=== PATIENT | male | born 1965 | race Caucasian/White ===

== ENCOUNTER 2018-08-18 09:31 | Inpatient (IN) ==
[2018-08-18] MEDS ORDERED: Morphine Inj 4 MG/ML Vial IV.PUSH ONE (10:01)
--- NOTE | 2018-08-18 10:07 | ED ---
HPI General Chief complaint: Skin/Abscess/Foreign Body Stated complaint: rt arm infection/ vomiting Time Seen by Provider: 08/18/18 09:52 History of Present Illness HPI narrative: 52-year-old male with a history of Crohn's disease and diabetes presents to the emergency department for evaluation of right forearm swelling and pain. Patient states that about 1 week ago he started having pain in the right forearm. States that about 3 days ago he started having swelling to the proximal aspect of the right forearm and it also started to get slightly red. States he was seen at an urgent care yesterday and told he had cellulitis and was given an injection of antibiotics and they called him prescriptions for oral antibiotics but he did not get them filled yet. States that overnight the pain and swelling has significantly worsened and he started having vomiting. States last night he woke up with body shakes and chills. He states that the pain is severe. Aggravated with movement and palpation. Denies any alleviating factors. Denies any fever. Denies IV drug use. No other complaints or concerns. Related Data Home Medications Medication Instructions Recorded Confirmed Novolog U-100 Insulin aspart 10 unit SUB-Q TID 05/24/18 08/18/18 insulin detemir U-100 [Levemir 25 unit SUB-Q QPM 05/24/18 08/18/18 U-100 Insulin] Allergies Allergy/AdvReac Type Severity Reaction Status Date / Time infliximab Allergy Severe HIVES Verified 08/18/18 09:40 infliximab-dyyb Allergy Severe HIVES Verified 08/18/18 09:40 Review of Systems ROS: all other systems reviewed are negative [facility] Family History Family History Other Diabetes Social History Social History Substance History: No History of Abuse Second Hand Smoke Exposure: No Smoking Status: Current every day smoker Tobacco Type: Cigarettes How Often Do You Have a Drink Containing Alcohol: Monthly or less Immunization History Tetanus Immunization: Unsure Exam Narrative Exam Narrative: GENERAL: Well-nourished and well-developed male patient in no acute distress who is nontoxic appearing. SKIN: Warm and dry. HEAD: Normocephalic and atraumatic. EYES: No injection, drainage, or hyphema noted. PERRLA. EOMI. ENT: No nasal drainage noted. Oropharynx is clear. NECK: Supple and the trachea is midline. CARDIOVASCULAR: Regular rate and rhythm. RESPIRATORY: Breath sounds are equal bilaterally with no accessory muscle use, wheezing, rhonchi, or crackles. GASTROINTESTINAL: Abdomen is soft, non-tender, and nondistended. MUSCULOSKELETAL: Right volar proximal forearm with area of swelling, erythema and tenderness approximately 7 x 5 cm. No fluctuance or pointing. No obvious deformities, cyanosis, or ecchymosis is present throughout the upper and lower extremities. Patient has full range of motion without any signs of neurovascular compromise. Distal pulses are 2+ throughout. NEUROLOGICAL: Awake, alert, and oriented. Normal speech and gait. Cranial nerves are grossly intact. Course Initial Documented Vital Signs Temperature 98.0 F 08/18/18 09:35 Pulse Rate 97 H 08/18/18 09:35 Respiratory Rate 16 08/18/18 09:35 Blood Pressure 162/81 H 08/18/18 09:35 Pulse Oximetry 97 08/18/18 09:35 Last Documented Vital Signs Temperature 98.0 F 08/18/18 09:35 Pulse Rate 94 H 08/18/18 11:29 Respiratory Rate 16 08/18/18 11:29 Blood Pressure 154/79 H 08/18/18 11:29 Pulse Oximetry 99 08/18/18 11:29 Medical Decision Making JUAN Attestation JUAN supervised visit: Yes Attestation: I, Dr. Giron, have reviewed the advance practice practitioner's documentation and am in agreement, met with the patient face to face, made the diagnosis, and the medical decision making was done by me. *My assessment and Findings: Patient seen and evaluated with PA, please see PA note for further details. Here with worsening right arm infection and pain despite being on antibiotics and having seen in urgent care to get IV antibiotic shot yesterday. CAT scan is revealing signs of deeper hand space infection, and case have been discussed with hand and at this point, plan would be to transfer the patient to the main hospital for an I&D done by hand. MDM Narrative Medical decision making narrative: 52-year-old male presents to the emergency department for evaluation of right forearm swelling and pain. Patient is afebrile, vital signs are stable. IV access is obtained, labs have been drawn and sent. Patient is placed on cardiac telemetry and pulse oximetry monitoring. CT of the right forearm has been ordered and is pending to evaluate for possible abscess formation. Patient administered vancomycin 1 g IV , Zofran 4 mg IV, morphine 4 mg IV and IV fluids. CBC shows elevated white blood cell count of 13.4, otherwise unremarkable. CMP shows hyperglycemia with glucose 310 and slightly elevated alk phos, otherwise unremarkable. Lactic acid is within normal limits. CT of the right forearm with IV contrast shows complex fluid collection likely related to an abscess in the proximal anterior lateral forearm soft tissues within the flexor compartment likely related to abscess. Measuring 4.8 cm transverse, 3.2 cm in height and 5 cm in length. I spoke with Dr. Hernandez hand surgeon regarding patient's presentation and CT findings and he requests patient to be transferred to [facility] hospital as he will need to have surgical drainage of abscess. He requests admission to medicine service. I spoke with Dr. Freire [facility] who accepts patient to their service for admission. Medical Screen Exam Complete: Yes Emergency Medical Condition: Yes Differential Diagnosis Differential Diagnosis: Abscess versus cellulitis versus sepsis versus hyperglycemia Lab Data Result diagrams: 08/18/18 10:20 08/18/18 10:20 Lab Results 08/18/18 08/18/18 08/18/18 Range/Units 10:20 10:20 10:20 CBC w Diff Auto diff final WBC 13.4 H (4.0-11.0) th/mm3 RBC 5.28 (4.50-5.90) mil/mm3 Hgb 15.4 (13.0-17.0) gm/dL Hct 46.3 (39.0-51.0) % MCV 87.6 (80.0-100.0) fL MCH 29.1 (27.0-34.0) pg MCHC 33.2 (32.0-36.0) % RDW 13.8 (11.6-17.2) % Plt Count 412 (150-450) th/mm3 MPV 7.8 (7.0-11.0) fL Neut % (Auto) 84.6 H (16.0-70.0) % Lymph % (Auto) 10.0 (9.0-44.0) % [place] % (Auto) 4.2 (0.0-8.0) % Eos % (Auto) 0.9 (0.0-4.0) % Baso % (Auto) 0.3 (0.0-2.0) % Neut # (Auto) 11.4 H (1.8-7.7) th/mm3 Lymph # (Auto) 1.3 (1.0-4.8) th/mm3 [place] # (Auto) 0.6 (0.0-0.9) th/mm3 Eos # (Auto) 0.1 (0.0-0.4) th/mm3 Baso # (Auto) 0.0 (0.0-0.2) th/mm3 WBC Differential . Differential Comment . Sodium 136 (136-145) meq/L Potassium 3.9 (3.5-5.1) meq/L Chloride 99 (98-107) meq/L Carbon Dioxide 23.8 (21.0-32.0) meq/L Anion Gap 13 (5-15) meq/L BUN 12 (7-18) mg/dL Creatinine 0.76 (0.60-1.30) mg/dL Estimated GFR Greater than 89 (>89) mL/min POC Glucose (68-110) mg/dl Random Glucose 310 H (74-106) mg/dL Lactic Acid 1.3 (0.4-2.0) mmol/L Calcium 9.4 (8.5-10.1) mg/dL Total Bilirubin 0.5 (0.2-1.0) mg/dL AST 14 L (15-37) U/L ALT 28 (12-78) U/L Alkaline Phosphatase 163 H (45-117) U/L Total Protein 8.4 H (6.4-8.2) g/dL Albumin 3.4 (3.4-5.0) g/dL Lipase 73 (73-393) U/L 08/18/18 Range/Units 10:52 CBC w Diff WBC (4.0-11.0) th/mm3 RBC (4.50-5.90) mil/mm3 Hgb (13.0-17.0) gm/dL Hct (39.0-51.0) % MCV (80.0-100.0) fL MCH (27.0-34.0) pg MCHC (32.0-36.0) % RDW (11.6-17.2) % Plt Count (150-450) th/mm3 MPV (7.0-11.0) fL Neut % (Auto) (16.0-70.0) % Lymph % (Auto) (9.0-44.0) % [place] % (Auto) (0.0-8.0) % Eos % (Auto) (0.0-4.0) % Baso % (Auto) (0.0-2.0) % Neut # (Auto) (1.8-7.7) th/mm3 Lymph # (Auto) (1.0-4.8) th/mm3 [place] # (Auto) (0.0-0.9) th/mm3 Eos # (Auto) (0.0-0.4) th/mm3 Baso # (Auto) (0.0-0.2) th/mm3 WBC Differential Differential Comment Sodium (136-145) meq/L Potassium (3.5-5.1) meq/L Chloride (98-107) meq/L Carbon Dioxide (21.0-32.0) meq/L Anion Gap (5-15) meq/L BUN (7-18) mg/dL Creatinine (0.60-1.30) mg/dL Estimated GFR (>89) mL/min POC Glucose 310 H (68-110) mg/dl Random Glucose (74-106) mg/dL Lactic Acid (0.4-2.0) mmol/L Calcium (8.5-10.1) mg/dL Total Bilirubin (0.2-1.0) mg/dL AST (15-37) U/L ALT (12-78) U/L Alkaline Phosphatase (45-117) U/L Total Protein (6.4-8.2) g/dL Albumin (3.4-5.0) g/dL Lipase (73-393) U/L Imaging Data Radiologist's impression: Forearm CT 08/18/18 10:01 CONCLUSION: 1. Complex fluid collection likely related to an abscess in the proximal anterior lateral forearm soft tissues within the flexor compartment likely related to abscess. 2. The bony structures are unremarkable. Discharge Plan Discharge Disposition Patient Disposition: 30 Still Patient Discharge Details Diagnosis: Abscess of right forearm Physicians Team ED Provider: Nael Giron ED Midlevel Provider: Kerrie Cartwright Primary Care Provider: NON STAFF,PROVIDER Attending Provider: Donny Freire Other Providers: Daniel Bourgeois Status ED Status: Admitted Patient
[2018-08-18] MEDS ORDERED: Sod Chloride 0.9% Inj 1,000 ML IV.SIG SCH (10:15)
[2018-08-18] MEDS ORDERED: Vancomycin Inj 1,000 MG in Sodium Chlor 0.9% Inj 250 ML IV.SIG ONE (10:16)
[2018-08-18 10:33] LABS: Baso % (Auto) 0.3 % (0.0-2.0); Eos # (Auto) 0.1 th/mm3 (0.0-0.4); Eos % (Auto) 0.9 % (0.0-4.0); Hematocrit 46.3 % (39.0-51.0); Hemoglobin 15.4 gm/dL (13.0-17.0); Lymph # (Auto) 1.3 th/mm3 (1.0-4.8); Mean Corpuscular HGB Conc 33.2 % (32.0-36.0); Mean Corpuscular Hemoglobin 29.1 pg (27.0-34.0); Mean Corpuscular Volume 87.6 fL (80.0-100.0); Mean Platelet Volume 7.8 fL (7.0-11.0); Mono # (Auto) 0.6 th/mm3 (0.0-0.9); Mono % (Auto) 4.2 % (0.0-8.0); Neut # (Auto) 11.4 th/mm3 (1.8-7.7); Neut % (Auto) 84.6 % (16.0-70.0); Platelet Count 412 th/mm3 (150-450); Red Blood Count 5.28 mil/mm3 (4.50-5.90); Red Cell Distribution Width 13.8 % (11.6-17.2); White Blood Count 13.4 th/mm3 (4.0-11.0)
[2018-08-18 10:46] LABS: Chloride 99 meq/L (98-107); Potassium 3.9 meq/L (3.5-5.1); Sodium 136 meq/L (136-145)
[2018-08-18 10:49] LABS: Albumin 3.4 g/dL (3.4-5.0); Anion Gap 13 meq/L (5-15); Calcium 9.4 mg/dL (8.5-10.1); Carbon Dioxide 23.8 meq/L (21.0-32.0); Glucose,Random 310 mg/dL (74-106); Lipase 73 U/L (73-393)
[2018-08-18 10:50] LABS: Blood Urea Nitrogen 12 mg/dL (7-18)
[2018-08-18 10:52] LABS: Alanine Aminotransferase 28 U/L (12-78); Aspartate Aminotransferase 14 U/L (15-37); Glomerular Filtration Rate Greater Than 89 mL/min (>89)
[2018-08-18 10:54] LABS: Total Protein 8.4 g/dL (6.4-8.2)
[2018-08-18 10:55] LABS: Alkaline Phosphatase 163 U/L (45-117)
[2018-08-18] MEDS ORDERED: Vancomycin Inj 1,000 MG in Sodium Chlor 0.9% Inj 250 ML IV.SIG SCH (11:00)
[2018-08-18] MEDS ORDERED: Morphine Sulfate Inj 2 MG/ML Vial IV.PUSH ONE (11:22)
--- NOTE | 2018-08-18 11:30 | CT ---
EXAM DATE: 08/18/2018 11:22 AM EST AGE/SEX: 52 years / Male INDICATIONS: Right volar forearm swelling and pain for 1 week, with nausea and vomiting today CLINICAL DATA: This is the patient's initial encounter. Patient reports that signs and symptoms have been present for 1 week and indicates a pain score of 8/10. MEDICAL/SURGICAL HISTORY: Diabetes. Hypertension. Crohn's disease. . Rotator and back surgery RADIATION DOSE: 13.20 CTDI (mGy) COMPARISON: No prior exams available for comparison. TECHNIQUE: Multiple contiguous axial images were acquired using a multi-row detector CT scanner afte r the intravenous administration of 90 ml Omnipaque 350 (iohexol) nonionic water-soluble contrast as a single exam dose. Multiplanar reconstruction was performed in the sagittal and coronal planes. Using automated exposure control and adjustment of the mA and/or kV according to patient size, radiat ion dose was kept as low as reasonably achievable to obtain optimal diagnostic quality images. DICOM format image data is available electronically for review and comparison. FINDINGS: Bones: The bony structures about the forefoot are in normal alignment. The metatarsi, phalanges, an d distal tarsal row osseous structures are intact. No fracture is seen. Joints: No significant arthropathy or bony hypertrophy is seen. Soft Tissues: There is a complex multiloculated fluid collection seen in the deep soft tissues at th e proximal anterior lateral forearm anterior to the radius measuring approximately 4.8 cm in transver se dimension, 3.2 cm in height and extending over a 5 cm length. This appearance is most suggestive o f an abscess. It is within the flexor compartment. Other: There is a 3 mm calcific density in the superficial fat at the mid anterior medial subcutaneo us fat. Post Contrast: The rim and multiple septations are seen to advance within the complex fluid collecti on. CONCLUSION: 1. Complex fluid collection likely related to an abscess in the proximal anterior lateral forearm so ft tissues within the flexor compartment likely related to abscess. 2. The bony structures are unremarkable. Electronically signed by: Roger Regan MD 08/18/2018 11:29 AM EST
[2018-08-18] MEDS ORDERED: Vancomycin Consult Pharmacy OTHER PRN (12:31)
[2018-08-18] MEDS: Sod Chloride 0.9% Inj 1,000 ML IV.CONT SCH (12:42)
[2018-08-18] MEDS ORDERED: Piperacil/Tazo 3.375 GM Premix 50 ML IV.SIG SCH (13:00)
--- NOTE | 2018-08-18 13:24 | P.HP ---
History of Present Illness Primary Care Physician: PROVIDER NON STAFF History of Present Illness: 52-year-old white male being admitted for sepsis 2/2 right forearm infx. Patient was in his usual state of health about 1 week ago when he began experiencing right forearm pain. Says that his pain would worsen with forearm movement including supination flexion, wrist flexion wrist extension, and closing his right fist. Says he saw a redness emerge in his proximal anterior forearm about 2 days ago, went to an urgent care yesterday received some sort of IV antibiotic shot and was prescribed antibiotics. This morning he woke up in worsening excruciating pain and noted that the redness had expanded towards his wrist and also on the other and almost midway up his upper arm. He reports having subjective fevers along with nausea and vomiting. Denies any diarrhea. Denies any inoculating injury or any trauma to the arm. Patient reports having uncontrolled sugars, thinks his A1c is around 8-9, says his blood sugars range from the 150s up to the 300s. Says he is not very compliant with his insulin regimen. Denies noticing any whiteheads on his arm recently. In the emergency department he had a CT scan done which showed an abscess-like finding in the forearm flexor compartment. His white count was around 13,000. Patient was given a dose of vancomycin, and surgery has been consulted for possible debridement today. Patient does have history of severe cellulitis of the right elbow a few years ago that was successfully treated with antibiotics. Inpatient Certification: I certify that the inpatient services were ordered in accordance with Medicare regulations governing the order. This includes certification that hospital inpatient services are reasonable and necessary and in the case of services not specified as inpatient-only under 42 CFR 419.22(n), that they are appropriately provided as inpatient services in accordance to with the 2-midnight benchmark under 43 CFR 412.3(e) Estimated Total Length of Stay (Days): 2 Plans for Post Hospital Care: Not yet determined Review of Systems All other systems reviewed negative except as stated in HPI PMFSH - History History Provided By: Patient - Medical History Medical History: Medical History (Last Reviewed 08/18/18 @ 13:19 by Donny Freire MD) Hx of diabetes mellitus Hx of primary hypertension Crohn's disease - Surgical History Surgical History: Surgical History (Last Reviewed 08/18/18 @ 13:19 by Donny Freire MD) History of back surgery Hx of rotator cuff surgery - Family History Family History: Family History (Last Updated 08/18/18 @ 13:19 by Donny Freire MD) Other Diabetes - Social History I have reviewed the patient's Social History: Yes - Tobacco History Second Hand Smoke Exposure: No Tobacco Use In Past 30 Days: Yes Smoking Status: Current every day smoker Tobacco Type: Cigarettes - Alcohol History How Often Do You Have a Drink Containing Alcohol: Monthly or less - Substance Use History Substance History: No History of Abuse - Immunization History Tetanus Immunization: Unsure Medications and Allergies Active Medications: Active Medications Piperacillin/Tazobactam/Dextrose (Zosyn 3.375 Gm Premix) 50 mls @ 100 mls/hr IV.SIG Q6H MARILEE Last Admin: 08/18/18 12:57 Dose: 100 mls/hr Sodium Chloride (Ns Inj) 1,000 mls @ 42 mls/hr IV.CONT .[id number] MARILEE Last Admin: 08/18/18 12:42 Dose: 42 mls/hr Vancomycin HCl 1,250 mg/ (Sodium Chloride) 262.5 mls @ 250 mls/hr IV.SIG Q12H MARILEE Miscellaneous Information ([facility] Ordered Lab Info) 0 each OTHER ONCE ONE Stop: 08/20/18 09:46 Pharmacy Profile Note (Vancomycin Consult Pharmacy) 1 each OTHER UNSCH PRN PRN Reason: Pharmacy to dose Sodium Chloride (Ns Flush) 2 ml IV.FLUSH BID MARILEE Sodium Chloride (Ns Flush) 2 ml IV.FLUSH PRN PRN PRN Reason: FLUSH AFTER USING IV ACCESS Allergies Allergy/AdvReac Type Severity Reaction Status Date / Time infliximab Allergy Severe HIVES Verified 08/18/18 09:40 infliximab-dyyb Allergy Severe HIVES Verified 08/18/18 09:40 Home Medications Medication Instructions Recorded Confirmed Type Novolog U-100 Insulin aspart 10 unit SUB-Q TID 05/24/18 08/18/18 History insulin detemir U-100 [Levemir 25 unit SUB-Q QPM 05/24/18 08/18/18 History U-100 Insulin] Exam Vital signs: Vital Signs 08/18/18 09:35 08/18/18 10:55 08/18/18 11:29 Temperature 98.0 F Pulse Rate 97 H 85 94 H Respiratory Rate 16 18 16 Blood Pressure 162/81 H 152/75 H 154/79 H Pulse Oximetry 97 97 99 Intake & Output 08/17/18 08/18/18 08/18/18 18:59 06:59 18:59 Intake Total 1250 / 1250 Balance 1250 / 1250 Weight 74 kg Intake: IV 1250 / 1250 NS Inj 1,000 ML @ 1000 mls/hr 1000 / 1000 IV.SIG BOLUS MARILEE Rx#:[id number] Vancomycin Inj 1,000 MG In NS 250 / 250 Inj 250 ML @ 250 mls/hr IV.SIG ONCE ONE Rx#:[id number] Narrative: VS: afebrile GENERAL: Middle-aged white male, well-nourished SKIN: Warm and dry. EYES: No scleral icterus. No injection or drainage. ENT: No nasal bleeding or discharge. Mucous membranes pink and moist. CARDIOVASCULAR: Regular rate and rhythm. no murmurs RESPIRATORY: No accessory muscle use. Clear to auscultation. Breath sounds equal bilaterally. GASTROINTESTINAL: Abdomen soft, non-tender, nondistended. Hepatic and splenic margins not palpable. Extremities: No clubbing, cyanosis. Right forearm shows moderate edema with corresponding erythema on the anterior aspect, with extending erythema going up spanning across the elbow joint and reach the proximal medial arm. Patient has substantial pain elicited in the flexor compartment of his forearm with wrist and finger extension; left forearm appears wnl MUSCULOSKELETAL: Adequate muscle bulk and tone for age and habitus NEUROLOGICAL: Awake and alert. No obvious cranial nerve deficits. No facial droop nor slurred speech noted. PSYCHIATRIC: Appropriate mood and affect; insight and judgment normal. Results - Labs CBC & Chem 7: 08/18/18 10:20 08/18/18 10:20 Labs: Laboratory Results - last 24 hr 08/18/18 08/18/18 08/18/18 10:20 10:20 10:20 CBC w Diff Auto diff final WBC 13.4 H RBC 5.28 Hgb 15.4 Hct 46.3 MCV 87.6 MCH 29.1 MCHC 33.2 RDW 13.8 Plt Count 412 MPV 7.8 Neut % (Auto) 84.6 H Lymph % (Auto) 10.0 [place] % (Auto) 4.2 Eos % (Auto) 0.9 Baso % (Auto) 0.3 Neut # (Auto) 11.4 H Lymph # (Auto) 1.3 [place] # (Auto) 0.6 Eos # (Auto) 0.1 Baso # (Auto) 0.0 WBC Differential . Differential Comment . Sodium 136 Potassium 3.9 Chloride 99 Carbon Dioxide 23.8 Anion Gap 13 BUN 12 Creatinine 0.76 Estimated GFR Greater than 89 POC Glucose Random Glucose 310 H Lactic Acid 1.3 Calcium 9.4 Total Bilirubin 0.5 AST 14 L ALT 28 Alkaline Phosphatase 163 H Total Protein 8.4 H Albumin 3.4 Lipase 73 08/18/18 10:52 CBC w Diff WBC RBC Hgb Hct MCV MCH MCHC RDW Plt Count MPV Neut % (Auto) Lymph % (Auto) [place] % (Auto) Eos % (Auto) Baso % (Auto) Neut # (Auto) Lymph # (Auto) [place] # (Auto) Eos # (Auto) Baso # (Auto) WBC Differential Differential Comment Sodium Potassium Chloride Carbon Dioxide Anion Gap BUN Creatinine Estimated GFR POC Glucose 310 H Random Glucose Lactic Acid Calcium Total Bilirubin AST ALT Alkaline Phosphatase Total Protein Albumin Lipase - Imaging Impressions Forearm CT 08/18/18 10:01 CONCLUSION: 1. Complex fluid collection likely related to an abscess in the proximal anterior lateral forearm soft tissues within the flexor compartment likely related to abscess. 2. The bony structures are unremarkable. Caprini VTE Risk Assessment Caprini VTE Risk Assessment: Moderate/High Risk (score >= 2) Caprini Risk Assessment Model: Point Value = 1 Point Value = 2 Point Value = 3 Point Value = 5 Age 41-60 Minor surgery BMI > 25 kg/m2 Swollen legs Varicose veins or History of unexplained or recurrent spontaneous Oral contraceptives or hormone replacement Sepsis (< 1 month) Serious lung disease, including pneumonia (< 1 month) Abnormal pulmonary function Acute myocardial infarction Congestive heart failure (< 1 month) History of inflammatory bowel disease Medical patient at bed rest Age 61-74 Arthroscopic surgery Major open surgery (> 45 min) Laparoscopic surgery (> 45 min) Malignancy Confined to bed (> 72 hours) Immobilizing plaster cast Central venous access Age >= 75 History of VTE Family history of VTE Factor V Leiden Prothrombin [id number] Lupus anticoagulant Anticardiolipin antibodies Elevated serum homocysteine Heparin-induced thrombocytopenia Other congenital or acquired thrombophilia Stroke (< 1 month) Elective arthroplasty Hip, pelvis, or leg fracture Acute spinal cord injury (< 1 month) Prophylaxis Regimen: Total Risk Factor Score Risk Level Prophylaxis Regimen 0-1 Low Early ambulation 2 Moderate Order ONE of the following: *Sequential Compression Device (SCD) *Heparin 5000 units SQ BID 3-4 Higher Order ONE of the following medications: *Heparin 5000 units SQ TID *Enoxaparin/Lovenox 40 mg SQ daily (WT < 150 kg, CrCl > 30 mL/min) *Enoxaparin/Lovenox 30 mg SQ daily (WT < 150 kg, CrCl > 10-29 mL/min) *Enoxaparin/Lovenox 30 mg SQ BID (WT < 150 kg, CrCl > 30 mL/min) AND/OR *Sequential Compression Device (SCD) 5 or more Highest Order ONE of the following medications: *Heparin 5000 units SQ TID (Preferred with Epidurals) *Enoxaparin/Lovenox 40 mg SQ daily (WT < 150 kg, CrCl > 30 mL/min) *Enoxaparin/Lovenox 30 mg SQ daily (WT < 150 kg, CrCl > 10-29 mL/min) *Enoxaparin/Lovenox 30 mg SQ BID (WT < 150 kg, CrCl > 30 mL/min) AND *Sequential Compression Device (SCD) Assessment and Plan - Plan 52-year-old white male being admitted for right forearm abscess Sepsis 2/[address] suggesting volar aspect abscess as well as clinical exam demonstrating possible cellulitis, ? nec fascitis Hand surgery contacted, planning to take patient to OR today for debridement, continue vancomycin and Zosyn - Blood cultures pending - NPO w/ IVFs Diabetes uncontrolled Sliding scale with Accu-Cheks SCDs for now given surgery anticipated
[2018-08-18] MEDS ORDERED: Dextrose 50% in Water 50 ML Vial IV.PUSH PRN (13:25)
[2018-08-18] MEDS ORDERED: HYDROmorphone PF Inj 2 MG/ML Vial IV.PUSH ONE (13:38)
[2018-08-18] MEDS: HYDROmorphone PF Inj 1 MG/ML Ampul IV.PUSH PRN ×2 (17:24→22:17)
[2018-08-18] MEDS: Insulin NovoLOG Aspart Correctional Sugar Inj SQ SCH ×2 (17:26→20:20)
[2018-08-18] MEDS: Piperacil/Tazo 3.375 GM Premix 50 ML IV.SIG SCH (18:49)
[2018-08-18] MEDS ORDERED: *Meperidine Inj 25 MG/ML Vial PERIprocedural Use ONLY ONE (19:23)
[2018-08-18] MEDS ORDERED: fentaNYL Citrate Inj 100 MCG/2 ML Ampul ONE (19:25)
[2018-08-18] MEDS: *HYDROmorphone PF Inj 1 MG/ML Ampul PERIprocedural Use ONLY ONE (19:28)
[2018-08-18] MEDS ORDERED: *HYDROmorphone PF Inj 1 MG/ML Ampul PERIprocedural Use ONLY ONE (19:41)
--- NOTE | 2018-08-18 19:45 | MP ---
cc: Rafa MYRICK DATE OF OPERATION: 08/18/2018 DATE OF SERVICE: 08/18/2018 CHIEF COMPLAINT: Right forearm pain. HISTORY OF PRESENT ILLNESS: Mr. Maddox is a 52-year-old, left-hand dominant gentleman who presents by way of hospital transfer from [facility]. He notes that he was in his usual state of health until a week ago when he started experiencing right forearm pain. He notes that over the last 2-3 days, the pain started to worsen and he additionally saw increasing edema about the proximal forearm with erythema. He presented to the ER today. He has had no medical management to date. CT scan was obtained which demonstrates an intramuscular abscess. He had a leukocytosis. Hand surgery consultation was requested. Upon presentation at bedside, he rates a 4/10 pain. He denies pain with elbow range of motion. He denies other complaint. PAST MEDICAL HISTORY: Significant for diabetes type 2, A1c between 8 and 9, hypertension and Crohn disease. PAST MEDICAL HISTORY: Significant for rotator cuff surgery, back surgery. FAMILY HISTORY: Noncontributory. SOCIAL HISTORY: Endorses cigarette use of 1 pack per day and social alcohol use. MEDICATIONS: As per hospital chart. HOME MEDICATIONS: Include insulin only. ALLERGIES: INFLIXIMAB. REVIEW OF SYSTEMS: GENERAL: No fever or chills. ABDOMEN: No nausea, vomiting. CARDIOVASCULAR: No chest pain. LUNGS: Nonlabored breathing. No wheezing or cough. MUSCULOSKELETAL: Right forearm pain. NEUROLOGIC: No numbness or tingling. PSYCHIATRIC: No anxiety or depression. HEENT: No ear pain. No runny nose. PHYSICAL EXAMINATION: GENERAL: He is alert and oriented x3 with a normal mood and affect. MUSCULOSKELETAL: Focused evaluation of the right upper extremity demonstrates moderate edema about the proximal radial aspect of the forearm. There is associated tenderness to palpation and with fullness along the flexor compartment. There is overlying erythema with proximal tracking of the erythema up to the arm. There is no pain with passive range of motion of the elbow including supination, pronation, extension, flexion. Sensation is intact in the median, radial, ulnar nerve distribution. There is full hand range of motion. 2+ radial pulse. NEUROLOGIC: As per above. PSYCHIATRIC: Normal mood and affect. LUNGS: Unlabored breathing. CARDIOVASCULAR: Right upper extremity edema. 2+ radial pulse. Regular rate and rhythm. SKIN: Positive for edema, erythema. LABORATORY DATA: WBC of 13.4. IMAGING: CT scan of the right forearm, IV contrast demonstrates intramuscular abscess along the flexor compartment. There is no evidence of extension of the abscess intraarticularly. This measures 5 x 3 x 5 cm in length. ASSESSMENT: A 52-year-old gentleman with type 2 diabetes on insulin, with right intramuscular forearm abscess to the flexor compartment. PLAN: I had a thorough discussion with Mr. Maddox regarding our recommendations for irrigation and debridement of abscess. Relevant risks, benefits, expected postoperative course of surgical management were reviewed. Risks include but are not limited to, damage to surrounding blood vessels and nerves, continued infection, worsening infection, need for future surgery, wound healing issues, and extension of the infection intraarticularly. An ample opportunity was offered for his questions to be answered. All of his questions were answered to his apparent satisfaction. He agreed to proceed with surgery as per consent. Plan for admission to the hospitalist service. IV antibiotics for a minimum of 48-72 hours. Follow operative cultures. Of note, the patient has already been dosed with both Zosyn and vancomycin preoperatively. This will likely limit our intraoperative culture yield. DISPOSITION: Pending infectious disease consultation. Transition from IV to oral antibiotics once clinical course improves. Rafa Bourgeois MD, CM/jaclyn , 06:16 PM , 06:25 PM ZARIA
--- NOTE | 2018-08-18 20:15 | MP ---
cc: ,Rafa Bourgeois DATE OF OPERATION: 08/18/2018 DATE OF SERVICE: 08/18/2018 PREOPERATIVE DIAGNOSIS: Right intramuscular forearm abscess. POSTOPERATIVE DIAGNOSIS: Right intramuscular forearm abscess. OPERATION PERFORMED: Right forearm irrigation and debridement of deep abscess, intramuscular. SURGEON: Rafa Hernandez MD ANESTHESIA: General. ESTIMATED BLOOD LOSS: 10 mL FLUIDS: Per anesthesia record. SPECIMENS: Culture x2 sent to microbiology for aerobic, anaerobic, fungal, AFB. URINE OUTPUT: Not recorded. COMPLICATIONS: None. INDICATIONS: Please see history and physical for complete details. In summary, Mr. Maddox is a 52-year-old gentleman with type 2 diabetes, who presented to [facility] with increasing pain and swelling about the volar forearm. This occurred over the last week with increasing pain over the last 3 days. He denies any type of inoculation injury or any cut to the arm. The evaluation was significant for an intramuscular abscess on CT scan. Hand surgery consultation was requested and transfer of care was facilitated to [facility]. We discussed our recommendations at bedside regarding irrigation and debridement of the intramuscular abscess. Relevant risks, benefits, expected postoperative course of surgical management were reviewed. Risks include, but are not limited to damage to surrounding blood vessels and nerves, continued infection, wound healing issues, and need for future surgery. An ample opportunity was offered for his questions to be answered and all his questions were answered to his apparent satisfaction. He agreed to proceed with surgery as per consent. DESCRIPTION OF PROCEDURE: The patient was identified in the preoperative holding area and the operative site was marked and then brought back to the operating room under the care of the anesthesiology team. Then positioned supine on the OR table. All bony prominences were padded per protocol. Timeout was performed during which the patient's identity, site, side and nature of procedure was confirmed. General anesthesia was then induced without untoward effect and an LMA was placed. The right upper extremity was then prepped and draped in routine strict sterile fashion using triple prep solution and occlusive draping. The upper extremity was held via gravity exsanguination and the nonsterile tourniquet was inflated to 250 mmHg and remained inflated through the duration of the case. A longitudinal incision, centralized over the proximal forearm localized just distal to the elbow flexion crease, was made. Sharp dissection was carried through skin and dissection was continued through the subcutaneous tissues. Full-thickness skin flaps were elevated. The interval between the flexor and extensor volar compartment was identified. The volar forearm fascia was incised and Weitlaner retractors were placed. The radial border pronator teres was identified and blunt dissection was then utilized to identify the plane between the pronator teres and brachioradialis. Upon finding this plane, there was immediate expression of copious purulence. Cultures x2 were obtained at this point in time, attention was then turned identifying the exact localization of the abscess. The abscess did appear to have a well-defined region within the flexor pronator group, specifically within the muscle of the pronator teres and the flexor carpi radialis. The borders of the abscess were bluntly defined and the abscess was evacuated. There was no evidence of violation of the joint capsule. There is no evidence of muscle necrosis. A thorough irrigation of the abscess was then performed, once the abscess had been appropriately evacuated. Three liters normal saline solution were run through the wound with mechanical debridement being performed. A repeat evaluation of the forearm demonstrated no persistent evidence of purulence or loculation within the volar forearm. Attention was turned to placement of a EDMUNDO flat drain. This was placed within the abscess. The drain was then cut short. A bulb syringe was then placed on the drain. The wound was then closed with 4-0 Prolene in a horizontal mattress fashion loosely. A dry sterile dressing consisting of Xeroform, 4 x 4 gauze, burn fluffs and an Randall wrap were then applied. This completed the case. At the conclusion of the case, all sponge and instrument counts were correct x2. I was present for the entire duration of the case. DISPOSITION: The patient was reversed from anesthesia and transferred to PACU in stable condition. POSTOPERATIVE RECOMMENDATIONS: 1. Upper extremity elevation for edema control. 2. Follow operative cultures. Tailor antibiotic therapy accordingly. The patient was dosed IV Zosyn following obtaining operative cultures. However, the patient did previously receive IV vancomycin and Zosyn preoperatively which may alter our culture results. 3. Recommend infectious disease consultation for finalization of antibiotic therapy with eventual transition to oral regimen. 4. Plan for discharge home once the patient is clinically improved. Anticipate discharge as early as postoperative day #2, pending infectious disease and primary team recommendations. Rafa Bourgeois MD, CM/jadon , 07:23 PM , 07:33 PM
[2018-08-18] MEDS ORDERED: Insulin Detemir Inj 1,000 UNIT/10 ML Vial SQ SCH (21:00)
[2018-08-18] MEDS: Vancomycin Inj 1,250 MG in Sodium Chlor 0.9% Inj 250 ML IV.SIG SCH (22:37)
[2018-08-19] MEDS ORDERED: Ketorolac Inj 30 MG/ML (IVP) Vial IV.PUSH ONE ×2 (00:21→20:44)
[2018-08-19] MEDS: HYDROmorphone PF Inj 1 MG/ML Ampul IV.PUSH PRN ×7 (01:12→19:46)
[2018-08-19] MEDS: Piperacil/Tazo 3.375 GM Premix 50 ML IV.SIG SCH ×4 (01:12→18:01)
[2018-08-19 07:25] LABS: Baso % (Auto) 0.2 % (0.0-2.0); Eos % (Auto) 0.1 % (0.0-4.0); Hematocrit 37.7 % (39.0-51.0); Hemoglobin 12.9 gm/dL (13.0-17.0); Lymph # (Auto) 1.2 th/mm3 (1.0-4.8); Lymph % (Auto) 7.8 % (9.0-44.0); Mean Corpuscular HGB Conc 34.4 % (32.0-36.0); Mean Corpuscular Hemoglobin 30.2 pg (27.0-34.0); Mean Corpuscular Volume 87.9 fL (80.0-100.0); Mean Platelet Volume 7.5 fL (7.0-11.0); Mono # (Auto) 0.8 th/mm3 (0.0-0.9); Mono % (Auto) 4.8 % (0.0-8.0); Neut # (Auto) 13.7 th/mm3 (1.8-7.7); Neut % (Auto) 87.1 % (16.0-70.0); Platelet Count 304 th/mm3 (150-450); Red Blood Count 4.29 mil/mm3 (4.50-5.90); Red Cell Distribution Width 14.3 % (11.6-17.2); White Blood Count 15.8 th/mm3 (4.0-11.0)
[2018-08-19 07:32] LABS: Anion Gap 15 meq/L (5-15); Blood Urea Nitrogen 16 mg/dL (7-18); Calcium 8.3 mg/dL (8.5-10.1); Carbon Dioxide 20.4 meq/L (21.0-32.0); Chloride 102 meq/L (98-107); Glomerular Filtration Rate Greater Than 89 mL/min (>89); Glucose,Random 286 mg/dL (74-106); Potassium 3.6 meq/L (3.5-5.1); Sodium 137 meq/L (136-145)
[2018-08-19] MEDS: Insulin NovoLOG Aspart Correctional Sugar Inj SQ SCH ×4 (07:38→20:33)
[2018-08-19] MEDS: Vancomycin Inj 1,250 MG in Sodium Chlor 0.9% Inj 250 ML IV.SIG SCH ×2 (10:53→21:37)
--- NOTE | 2018-08-19 13:47 | ECG ---
Date Performed: 08/18/2018 Time Performed: 16:13:08 PTAGE: 52 years EKG: Sinus rhythm WITH OCCASIONAL VENTRICULAR PREMATURE COMPLEXES POSSIBLE RIGHT VENTRICULAR CONDUCTION DELAY BORDERLI NE ECG NO PREVIOUS TRACING DOCTOR: Ab Escalera Interpretating Date/Time 08/19/2018 13:44:45
--- NOTE | 2018-08-19 14:40 | P.PNIM ---
Subjective Interval history: 52 yo m admitted w severe cellulitis and abscess of R forearm s/p R forearm irrigation and debridement of deep intramuscular abscess yesterday. pt seen and examined, doing fair denies sob no cp, no nv, Physical Exam Vital signs: Last Vital Signs Temp 97.6 F 08/19/18 12:00 Pulse 83 08/19/18 12:00 Resp 18 08/19/18 12:00 BP 131/71 08/19/18 12:00 Pulse Ox 96 08/19/18 12:00 Intake & Output 08/17/18 08/18/18 08/19/18 08/20/18 06:59 06:59 06:59 06:59 Intake Total 2732.5 / 2732.5 Output Total 315 / 315 Balance 2417.5 / 2417.5 Weight 74 kg wdwn 52yo m pleasant aaox3 nad heart s1s2 reg lungs clear no wrr abd soft nondt pos bs ext RUE bandaged with drain in place, le no edema Results Labs CBC & Chem 7: 08/19/18 05:20 08/19/18 05:20 Labs: Microbiology 08/18/18 18:43 Abscess - Arm Fungal Smear - Final No fungal elements seen 08/18/18 18:43 Abscess - Arm Gram Stain - Final 08/18/18 18:43 Abscess - Arm Fungal Smear - Final No fungal elements seen 08/18/18 18:43 Abscess - Arm Gram Stain - Final 08/18/18 10:20 Blood - Peripheral Aerobic Blood Culture - Preliminary No growth in 1 day 08/18/18 10:20 Blood - Peripheral Anaerobic Blood Culture - Preliminary No growth in 1 day 08/18/18 10:30 Blood - Peripheral Aerobic Blood Culture - Preliminary No growth in 1 day 08/18/18 10:30 Blood - Peripheral Anaerobic Blood Culture - Preliminary No growth in 1 day Assessment and Plan Plan EARLY SEPSIS due to arm cellulitis - better CELLULITIS AND ABSCESS RIGHT FOREARM post urgent intraoperative R forearm irrigation, debridement of deep IM abscess, cont wound care abx, pain control , elevation and ID consult. DM IDDM - uncontrolled - diet, iss, levemir, accuchecks CROHNS dz - stable TOBACCO USE / NICOTINE ADDICTION - nicoderm, cessation counseled Progress Note: Quality VTE Deep Vein Thrombosis/Pulmonary Embolism Present on Admission: No
--- NOTE | 2018-08-19 15:28 | MB ---
cc: Donn Mchugh MD, Dorothy M DO DATE: 08/19/2018 REQUESTING PHYSICIAN: Nicci Smith DO REASON FOR CONSULTATION: Right arm abscess. HISTORY OF PRESENT ILLNESS: This is a 52-year-old white male who was admitted to the hospital with pain and redness of his right arm. The patient noted that about a week ago he developed sudden redness and swelling below the elbow inner aspect and it worsened. He presented to the emergency department yesterday. He was having swelling and pain. The patient reported that he had chills before coming to the emergency department. He was evaluated and he underwent incision and debridement and a EDMUNDO drain was left into the wound bed. A culture of the wound was sent. The result is pending. Blood culture has no growth in 1 day. The patient is afebrile. This consultation is requested for antibiotic management. The white blood cell count is elevated at 15.8. PAST MEDICAL HISTORY: Crohn disease, diabetes mellitus, hypertension, history of back surgery. ALLERGIES: INFLIXIMAB, INFLIXIMAB/DYYB. MEDICATIONS: 1. Piperacillin/tazobactam. 2. Vancomycin. 3. Insulin. SOCIAL HISTORY: The patient smokes a pack of cigarettes a day. No alcohol. No illicit drugs. FAMILY HISTORY: Noncontributory. REVIEW OF SYSTEMS: All systems have been reviewed and pertinents are mentioned in the history of present illness. PHYSICAL EXAMINATION: GENERAL: This is a well-developed male who is in no acute distress. He is awake and alert and oriented. VITAL SIGNS: Stable. Temperature is 97.6. HEENT: The head is atraumatic. Extraocular movements are grossly intact. Pupils are reactive to light. No icterus. Oropharynx with moist mucosa without lesions. NECK: Supple without adenopathy. LUNGS: Clear. HEART: Regular S1 and S2 without murmurs, rubs or gallops. ABDOMEN: Benign. Soft, nontender. RECTAL: Not performed. EXTREMITIES: No clubbing or cyanosis. The right arm is wrapped in a surgical dressing. There is a EDMUNDO drain which has serosanguineous drainage. SKIN: No diffuse rash. NEUROLOGIC: No gross focal finding. PSYCHIATRIC: The patient is calm and cooperative. LABORATORY DATA: WBC 15.8, platelets 304, neutrophils 87%. Creatinine 0.78. Estimated GFR 89. IMPRESSION: 1. Abscess of the right arm. 2. Diabetes mellitus. RECOMMENDATIONS: 1. Continue vancomycin. 2. Continue piperacillin/tazobactam. 3. Monitor the wound culture for antibiotic adjustment. 4. Monitor clinical status. 5. Monitor blood cultures. Thank you for this consultation. Further recommendations will be given upon followup. MD ALAN Morton/mariah , 12:34 PM , 12:43 PM
--- NOTE | 2018-08-19 20:12 | P.PN ---
Subjective Interval history: NOT SEEN Physical Exam Vital signs: Vital Signs 08/19/18 00:00 08/19/18 08:00 08/19/18 12:00 Temperature 97.8 F 97.7 F 97.6 F Pulse Rate 97 H 84 83 Respiratory Rate 17 18 18 Blood Pressure 130/63 150/86 H 131/71 Pulse Oximetry 97 95 96 08/19/18 16:00 Temperature 98.7 F Pulse Rate 86 Respiratory Rate 18 Blood Pressure 152/71 H Pulse Oximetry 94 L Intake & Output 08/19/18 08/19/18 08/20/18 06:59 18:59 06:59 Intake Total 1382.5 / 1382.5 1702.5 / 1702.5 50 / 50 Output Total 315 / 315 1335 / 1335 Balance 1067.5 / 1067.5 367.5 / 367.5 50 / 50 Weight 74 kg Intake: IV 412.5 / 412.5 502.5 / 502.5 50 / 50 NS Inj 1,000 ML @ 42 mls/hr IV. 190 / 190 CONT .[id number] [facility] Rx#: [id number] Zosyn 3.375 GM Premix 50 ML @ 150 / 150 50 / 50 50 / 50 100 mls/hr IV.SIG Q6H [facility]E Rx#: [id number] Vancomycin Inj 1,250 MG In NS 262.5 / 262.5 262.5 / 262.5 Inj 250 ML @ 250 mls/hr IV.SIG Q12H [facility]E Rx#:[id number] Oral 270 / 270 1200 / 1200 Anesthesia Amount 700 / 700 Output: Urine 300 / 300 1325 / 1325 Estimated Blood Loss Wound Drainage # 1 Right Anterior ForeArm EDMUNDO Drain Narrative: wdwn 52yo m pleasant aaox3 nad heart s1s2 reg lungs clear no wrr abd soft nondt pos bs ext RUE bandaged with drain in place, le no edema Results - Labs CBC & Chem 7: 08/19/18 05:20 08/19/18 05:20 Laboratory Results - last 24 hr 08/18/18 08/19/18 08/19/18 20:13 05:20 05:20 WBC 15.8 H RBC 4.29 L Hgb 12.9 L D Hct 37.7 L MCV 87.9 MCH 30.2 MCHC 34.4 RDW 14.3 Plt Count 304 MPV 7.5 Neut % (Auto) 87.1 H Lymph % (Auto) 7.8 L Yell % (Auto) 4.8 Eos % (Auto) 0.1 Baso % (Auto) 0.2 Neut # (Auto) 13.7 H Lymph # (Auto) 1.2 Yell # (Auto) 0.8 Eos # (Auto) 0.0 Baso # (Auto) 0.0 WBC Differential . Differential Comment Auto diff final Sodium 137 Potassium 3.6 Chloride 102 Carbon Dioxide 20.4 L Anion Gap 15 BUN 16 Creatinine 0.78 Estimated GFR Greater than 89 POC Glucose 235 H Random Glucose 286 H Calcium 8.3 L D 08/19/18 08/19/18 08/19/18 07:22 12:27 17:34 WBC RBC Hgb Hct MCV MCH MCHC RDW Plt Count MPV Neut % (Auto) Lymph % (Auto) Yell % (Auto) Eos % (Auto) Baso % (Auto) Neut # (Auto) Lymph # (Auto) Yell # (Auto) Eos # (Auto) Baso # (Auto) WBC Differential Differential Comment Sodium Potassium Chloride Carbon Dioxide Anion Gap BUN Creatinine Estimated GFR POC Glucose 288 H 248 H 220 H Random Glucose Calcium 08/19/18 19:48 WBC RBC Hgb Hct MCV MCH MCHC RDW Plt Count MPV Neut % (Auto) Lymph % (Auto) Yell % (Auto) Eos % (Auto) Baso % (Auto) Neut # (Auto) Lymph # (Auto) Yell # (Auto) Eos # (Auto) Baso # (Auto) WBC Differential Differential Comment Sodium Potassium Chloride Carbon Dioxide Anion Gap BUN Creatinine Estimated GFR POC Glucose 233 H Random Glucose Calcium Microbiology 08/18/18 18:43 Abscess - Arm Fungal Smear - Final No fungal elements seen 08/18/18 18:43 Abscess - Arm Gram Stain - Final 08/18/18 18:43 Abscess - Arm Fungal Smear - Final No fungal elements seen 08/18/18 18:43 Abscess - Arm Gram Stain - Final 08/18/18 10:20 Blood - Peripheral Aerobic Blood Culture - Preliminary No growth in 1 day 08/18/18 10:20 Blood - Peripheral Anaerobic Blood Culture - Preliminary No growth in 1 day 08/18/18 10:30 Blood - Peripheral Aerobic Blood Culture - Preliminary No growth in 1 day 08/18/18 10:30 Blood - Peripheral Anaerobic Blood Culture - Preliminary No growth in 1 day - Imaging ITS Impressions Forearm CT 08/18/18 10:01 CONCLUSION: 1. Complex fluid collection likely related to an abscess in the proximal anterior lateral forearm soft tissues within the flexor compartment likely related to abscess. 2. The bony structures are unremarkable. - Procedures right forearm abscess I and D Assessment and Plan - Plan EARLY SEPSIS due to arm cellulitis - better CELLULITIS AND ABSCESS RIGHT FOREARM post urgent intraoperative R forearm irrigation, debridement of deep IM abscess, cont wound care abx, pain control , elevation and ID consulted. DM IDDM - uncontrolled - diet, iss, levemir, accuchecks CROHNS dz - stable TOBACCO USE / NICOTINE ADDICTION - nicoderm, cessation counseled DVT proph with SCD
[2018-08-19] MEDS ORDERED: Acetaminophen 325 MG Tablet PO PRN (20:14)
[2018-08-19] MEDS ORDERED: Bisacodyl 10 MG Supp RECTAL PRN (20:14)
[2018-08-19] MEDS: Insulin Detemir Inj 1,000 UNIT/10 ML Vial SQ SCH (20:33)
[2018-08-20] MEDS: Piperacil/Tazo 3.375 GM Premix 50 ML IV.SIG SCH ×3 (01:45→14:06)
[2018-08-20] MEDS: HYDROmorphone PF Inj 1 MG/ML Ampul IV.PUSH PRN ×6 (01:45→23:49)
[2018-08-20 06:46] LABS: Baso % (Auto) 0.4 % (0.0-2.0); Eos # (Auto) 0.2 th/mm3 (0.0-0.4); Eos % (Auto) 1.9 % (0.0-4.0); Hematocrit 35.5 % (39.0-51.0); Hemoglobin 12.3 gm/dL (13.0-17.0); Lymph # (Auto) 1.5 th/mm3 (1.0-4.8); Lymph % (Auto) 14.6 % (9.0-44.0); Mean Corpuscular HGB Conc 34.7 % (32.0-36.0); Mean Corpuscular Volume 86.4 fL (80.0-100.0); Mean Platelet Volume 7.2 fL (7.0-11.0); Mono % (Auto) 9.4 % (0.0-8.0); Neut # (Auto) 7.5 th/mm3 (1.8-7.7); Neut % (Auto) 73.7 % (16.0-70.0); Platelet Count 280 th/mm3 (150-450); Red Blood Count 4.11 mil/mm3 (4.50-5.90); White Blood Count 10.2 th/mm3 (4.0-11.0)
[2018-08-20] MEDS: Insulin NovoLOG Aspart Correctional Sugar Inj SQ SCH ×4 (09:28→20:39)
[2018-08-20] MEDS: Insulin Detemir Inj 1,000 UNIT/10 ML Vial SQ SCH ×2 (09:30→20:38)
[2018-08-20] MEDS ORDERED: Pharmacy Ordered Lab Info OTHER ONE (09:45)
[2018-08-20] MEDS: Vancomycin Inj 1,250 MG in Sodium Chlor 0.9% Inj 250 ML IV.SIG SCH (12:29)
[2018-08-20] MEDS ORDERED: Acetaminophen 325 MG Tablet PO PRN (14:27)
[2018-08-20] MEDS ORDERED: Naloxone Inj 0.4 MG/ML Vial IV.PUSH PRN (14:27)
--- NOTE | 2018-08-20 14:31 | P.PN ---
Subjective Interval history: Follow-up forearm abscess and diabetes mellitus. Complains of constant right forearm pain temporarily with IV Dilaudid agrees to be on Lortab counseled regarding narcotics. Has been hyperglycemic takes preprandial 10 units of NovoLog Physical Exam Vital signs: Vital Signs 08/19/18 16:00 08/19/18 20:00 08/20/18 00:00 Temperature 98.7 F 98.2 F 97.6 F Pulse Rate 86 86 78 Respiratory Rate 18 18 17 Blood Pressure 152/71 H 134/64 121/68 Pulse Oximetry 94 L 96 96 08/20/18 04:00 08/20/18 08:00 08/20/18 12:00 Temperature 97.7 F 97.3 F L 97.3 F L Pulse Rate 82 79 80 Respiratory Rate 17 18 18 Blood Pressure 151/73 H 146/70 H 124/66 Pulse Oximetry 96 96 97 Intake & Output 08/19/18 08/20/18 08/20/18 18:59 06:59 18:59 Intake Total 1702.5 / 1702.5 842.5 / 842.5 50 / 50 Output Total 1335 / 1335 880 / 880 Balance 367.5 / 367.5 -37.5 / -37.5 50 / 50 Weight 74 kg Intake: IV 502.5 / 502.5 362.5 / 362.5 50 / 50 NS Inj 1,000 ML @ 42 mls/hr IV. 190 / 190 CONT .[id number] [facility] Rx#: [id number] Zosyn 3.375 GM Premix 50 ML @ 50 / 50 100 / 100 50 / 50 100 mls/hr IV.SIG Q6H [facility]E Rx#: [id number] Vancomycin Inj 1,250 MG In NS 262.5 / 262.5 262.5 / 262.5 Inj 250 ML @ 250 mls/hr IV.SIG Q12H [facility]ILEE Rx#:[id number] Oral 1200 / 1200 480 / 480 Output: Urine 1325 / 1325 880 / 880 Wound Drainage # 1 Right Anterior ForeArm EDMUNDO Drain Narrative: wdwn 52yo m pleasant aaox3 nad heart s1s2 reg lungs clear no wrr abd soft nondt pos bs ext RUE bandaged with drain in place, le no edema Skin is warm no lesions Results - Labs CBC & Chem 7: 08/20/18 05:41 08/19/18 05:20 Laboratory Results - last 24 hr 08/19/18 08/19/18 08/20/18 17:34 19:48 05:41 WBC 10.2 RBC 4.11 L Hgb 12.3 L Hct 35.5 L MCV 86.4 MCH 30.0 MCHC 34.7 RDW 14.0 Plt Count 280 MPV 7.2 Neut % (Auto) 73.7 H Lymph % (Auto) 14.6 [place] % (Auto) 9.4 H Eos % (Auto) 1.9 Baso % (Auto) 0.4 Neut # (Auto) 7.5 Lymph # (Auto) 1.5 [place] # (Auto) 1.0 H Eos # (Auto) 0.2 Baso # (Auto) 0.0 WBC Differential . Differential Comment Auto diff final POC Glucose 220 H 233 H Vancomycin Trough 08/20/18 08/20/18 08/20/18 07:48 10:42 12:58 WBC RBC Hgb Hct MCV MCH MCHC RDW Plt Count MPV Neut % (Auto) Lymph % (Auto) [place] % (Auto) Eos % (Auto) Baso % (Auto) Neut # (Auto) Lymph # (Auto) [place] # (Auto) Eos # (Auto) Baso # (Auto) WBC Differential Differential Comment POC Glucose 205 H 205 H Vancomycin Trough 7.7 Microbiology 08/18/18 18:43 Abscess - Arm Gram Stain - Final 08/18/18 18:43 Abscess - Arm Wound Culture - Preliminary Staphylococcus aureus 08/18/18 18:43 Abscess - Arm Gram Stain - Final 08/18/18 18:43 Abscess - Arm Wound Culture - Preliminary Staphylococcus aureus 08/18/18 10:20 Blood - Peripheral Aerobic Blood Culture - Preliminary No growth in 2 days 08/18/18 10:20 Blood - Peripheral Anaerobic Blood Culture - Preliminary No growth in 2 days 08/18/18 10:30 Blood - Peripheral Aerobic Blood Culture - Preliminary No growth in 2 days 08/18/18 10:30 Blood - Peripheral Anaerobic Blood Culture - Preliminary No growth in 2 days 08/18/18 18:43 Abscess - Arm Fungal Smear - Final No fungal elements seen 08/18/18 18:43 Abscess - Arm Fungal Smear - Final No fungal elements seen - Imaging ITS Impressions Forearm CT 08/18/18 10:01 CONCLUSION: 1. Complex fluid collection likely related to an abscess in the proximal anterior lateral forearm soft tissues within the flexor compartment likely related to abscess. 2. The bony structures are unremarkable. - Procedures right forearm abscess I and D Assessment and Plan - Plan EARLY SEPSIS due to arm cellulitis -resolved CELLULITIS AND ABSCESS RIGHT FOREARM post urgent intraoperative R forearm irrigation, debridement of deep IM abscess, cont wound care abx, pain control , elevation and ID consulted. Start Lortab counseled regarding narcotics DM IDDM - uncontrolled - diet, iss, levemir, accuchecks. Restart preprandial insulin at a lower dose. Hypoglycemia protocol CROHNS dz - stable TOBACCO USE / NICOTINE ADDICTION - nicoderm, cessation counseled DVT proph with SCD Discharge Planning: Per infectious disease and hand surgery
--- NOTE | 2018-08-20 16:30 | P.PNID ---
Subjective Remarks: Patient notes that he has severe pain in the right arm. Otherwise he has no other complaints. Afebrile. Wound culture has staph aureus. Sensitivities pending. This is a 52-year-old white male who was admitted to the hospital with pain and redness of his right arm. The patient noted that about a week ago he developed sudden redness and swelling below the elbow inner aspect and it worsened. He presented to the emergency department yesterday. He was having swelling and pain. The patient reported that he had chills before coming to the emergency department. He was evaluated and he underwent incision and debridement and a EDMUNDO drain was left into the wound bed. Past Medical History: PAST MEDICAL HISTORY: Crohn disease, diabetes mellitus, hypertension, history of back surgery. Allergies/Adverse Reactions: Allergies infliximab Allergy (Severe, Verified 08/18/18 09:40) HIVES infliximab-dyyb Allergy (Severe, Verified 08/18/18 09:40) HIVES Objective Vital Signs 08/19/18 20:00 08/20/18 00:00 08/20/18 04:00 Temperature 98.2 F 97.6 F 97.7 F Pulse Rate 86 78 82 Respiratory Rate 18 17 17 Blood Pressure 134/64 121/68 151/73 H Pulse Oximetry 96 96 96 08/20/18 08:00 08/20/18 12:00 Temperature 97.3 F L 97.3 F L Pulse Rate 79 80 Respiratory Rate 18 18 Blood Pressure 146/70 H 124/66 Pulse Oximetry 96 97 Intake & Output 08/19/18 08/20/18 08/20/18 18:59 06:59 18:59 Intake Total 1702.5 / 1702.5 842.5 / 842.5 100 / 100 Output Total 1335 / 1335 880 / 880 Balance 367.5 / 367.5 -37.5 / -37.5 100 / 100 Weight 74 kg Intake: IV 502.5 / 502.5 362.5 / 362.5 100 / 100 NS Inj 1,000 ML @ 42 mls/hr IV. 190 / 190 CONT .[id number] MARILEE Rx#: [id number] Zosyn 3.375 GM Premix 50 ML @ 50 / 50 100 / 100 100 / 100 100 mls/hr IV.SIG Q6H MARILEE Rx#: [id number] Vancomycin Inj 1,250 MG In NS 262.5 / 262.5 262.5 / 262.5 Inj 250 ML @ 250 mls/hr IV.SIG Q12H MARILEE Rx#:[id number] Oral 1200 / 1200 480 / 480 Output: Urine 1325 / 1325 880 / 880 Wound Drainage # 1 Right Anterior ForeArm EDMUNDO Drain 08/18/18 18:43 Abscess - Arm Acid Fast Bacilli Smear - Final No acid fast bacilli seen 08/18/18 18:43 Abscess - Arm Mycobacterial Culture - Pending 08/18/18 18:43 Abscess - Arm Acid Fast Bacilli Smear - Final No acid fast bacilli seen 08/18/18 18:43 Abscess - Arm Mycobacterial Culture - Pending 08/18/18 18:43 Abscess - Arm Gram Stain - Final 08/18/18 18:43 Abscess - Arm Wound Culture - Preliminary Staphylococcus aureus 08/18/18 18:43 Abscess - Arm Gram Stain - Final 08/18/18 18:43 Abscess - Arm Wound Culture - Preliminary Staphylococcus aureus 08/18/18 10:20 Blood - Peripheral Aerobic Blood Culture - Preliminary No growth in 2 days 08/18/18 10:20 Blood - Peripheral Anaerobic Blood Culture - Preliminary No growth in 2 days 08/18/18 10:30 Blood - Peripheral Aerobic Blood Culture - Preliminary No growth in 2 days 08/18/18 10:30 Blood - Peripheral Anaerobic Blood Culture - Preliminary No growth in 2 days 08/18/18 18:43 Abscess - Arm Fungal Smear - Final No fungal elements seen 08/18/18 18:43 Abscess - Arm Fungal Culture - Pending 08/18/18 18:43 Abscess - Arm Fungal Smear - Final No fungal elements seen 08/18/18 18:43 Abscess - Arm Fungal Culture - Pending Lab - Hematology Results 08/19/18 08/20/18 05:20 05:41 WBC 15.8 H 10.2 RBC 4.29 L 4.11 L Hgb 12.9 L D 12.3 L Hct 37.7 L 35.5 L MCV 87.9 86.4 MCH 30.2 30.0 MCHC 34.4 34.7 RDW 14.3 14.0 Plt Count 304 280 MPV 7.5 7.2 Neut % (Auto) 87.1 H 73.7 H Lymph % (Auto) 7.8 L 14.6 [place] % (Auto) 4.8 9.4 H Eos % (Auto) 0.1 1.9 Baso % (Auto) 0.2 0.4 Neut # (Auto) 13.7 H 7.5 Lymph # (Auto) 1.2 1.5 [place] # (Auto) 0.8 1.0 H Eos # (Auto) 0.0 0.2 Baso # (Auto) 0.0 0.0 WBC Differential . . Differential Comment Auto diff final Auto diff final Lab - Chemistry Results 08/18/18 08/18/18 08/18/18 16:45 19:17 20:13 Sodium Potassium Chloride Carbon Dioxide Anion Gap BUN Creatinine Estimated GFR POC Glucose 291 H 235 H 235 H Random Glucose Calcium 08/19/18 08/19/18 08/19/18 05:20 07:22 12:27 Sodium 137 Potassium 3.6 Chloride 102 Carbon Dioxide 20.4 L Anion Gap 15 BUN 16 Creatinine 0.78 Estimated GFR Greater than 89 POC Glucose 288 H 248 H Random Glucose 286 H Calcium 8.3 L D 08/19/18 08/19/18 08/20/18 17:34 19:48 07:48 Sodium Potassium Chloride Carbon Dioxide Anion Gap BUN Creatinine Estimated GFR POC Glucose 220 H 233 H 205 H Random Glucose Calcium 08/20/18 12:58 Sodium Potassium Chloride Carbon Dioxide Anion Gap BUN Creatinine Estimated GFR POC Glucose 205 H Random Glucose Calcium Imaging: ITS Impressions Forearm CT 08/18/18 10:01 CONCLUSION: 1. Complex fluid collection likely related to an abscess in the proximal anterior lateral forearm soft tissues within the flexor compartment likely related to abscess. 2. The bony structures are unremarkable. Physical Exam: PHYSICAL EXAMINATION: GENERAL: Patient in no acute distress. HEENT: The head is atraumatic. Extraocular movements are grossly intact. Pupils are reactive to light. No icterus. Oropharynx with moist mucosa without lesions. NECK: Supple without adenopathy. LUNGS: Clear. HEART: Regular S1 and S2 without murmurs, rubs or gallops. ABDOMEN: Benign. Soft, nontender. EXTREMITIES: No clubbing or cyanosis. The right arm is wrapped in a surgical dressing. There is a EDMUNDO drain which has serosanguineous drainage. SKIN: No diffuse rash. NEUROLOGIC: No gross focal finding. PSYCHIATRIC: Calm and cooperative. Assessment and Plan - Plan IMPRESSION: 1. Abscess of the right arm. Staph aureus. 2. Diabetes mellitus. RECOMMENDATIONS: 1. Continue vancomycin. 2. Stop piperacillin/tazobactam. 3. Monitor the wound culture for antibiotic adjustment. 4. Monitor clinical status. Anticipate a 2 week course of antibiotic. Ceftriaxone if the wound culture is sensitive staph aureus.
[2018-08-20] MEDS: Vancomycin Inj 1,350 MG in Sodium Chlor 0.9% Inj 500 ML IV.SIG SCH ×2 (20:38→23:47)
[2018-08-21] MEDS: Sod Chloride 0.9% Inj 1,000 ML IV.CONT SCH (01:15)
[2018-08-21] MEDS: HYDROmorphone PF Inj 1 MG/ML Ampul IV.PUSH PRN ×6 (03:07→19:32)
[2018-08-21] MEDS: Insulin NovoLOG Aspart Correctional Sugar Inj SQ SCH ×4 (08:59→21:08)
[2018-08-21] MEDS: Insulin Detemir Inj 1,000 UNIT/10 ML Vial SQ SCH ×2 (09:28→21:12)
[2018-08-21] MEDS: Vancomycin Inj 1,350 MG in Sodium Chlor 0.9% Inj 500 ML IV.SIG SCH (09:40)
--- NOTE | 2018-08-21 12:41 | P.PNID ---
Subjective Remarks: Patient notes that he still has pain in the right arm. Afebrile. Wound culture has staph aureus. MSSA. Has EDMUNDO drain in place. This is a 52-year-old white male who was admitted to the hospital with pain and redness of his right arm. The patient noted that about a week ago he developed sudden redness and swelling below the elbow inner aspect and it worsened. He presented to the emergency department yesterday. He was having swelling and pain. The patient reported that he had chills before coming to the emergency department. He was evaluated and he underwent incision and debridement and a EDMUNDO drain was left into the wound bed. Past Medical History: PAST MEDICAL HISTORY: Crohn disease, diabetes mellitus, hypertension, history of back surgery. Allergies/Adverse Reactions: Allergies infliximab Allergy (Severe, Verified 08/18/18 09:40) HIVES infliximab-dyyb Allergy (Severe, Verified 08/18/18 09:40) HIVES Objective Vital Signs 08/20/18 16:00 08/20/18 20:00 08/21/18 00:40 Temperature 97.9 F 97.8 F Pulse Rate 84 79 Respiratory Rate 18 18 18 Blood Pressure 133/67 152/68 H Pulse Oximetry 97 95 08/21/18 08:00 08/21/18 12:00 Temperature 97.9 F 97.5 F L Pulse Rate 75 70 Respiratory Rate 17 18 Blood Pressure 135/73 146/89 H Pulse Oximetry 94 L 97 Intake & Output 08/20/18 08/21/18 08/21/18 18:59 06:59 18:59 Intake Total 100 / 100 513.5 / 513.5 500 / 500 Output Total 305 / 305 Balance 100 / 100 208.5 / 208.5 500 / 500 Weight 77.5 kg Intake: IV 100 / 100 513.5 / 513.5 500 / 500 Zosyn 3.375 GM Premix 50 ML @ 100 / 100 100 mls/hr IV.SIG Q6H [facility]E Rx#: [id number] Vancomycin Inj 1,350 MG In NS 513.5 / 513.5 500 / 500 Inj 500 ML @ 250 mls/hr IV.SIG Q12H MARILEE Rx#:[id number] Output: Urine 300 / 300 Wound Drainage 5 / 5 # 1 Right Anterior ForeArm EDMUNDO 5 / 5 Drain Other: # Voids 3 Date of Last Bowel Movement 08/17/18 08/20/18 08/20/18 # Bowel Movements 1 08/18/18 10:20 Blood - Peripheral Aerobic Blood Culture - Preliminary No growth in 3 days 08/18/18 10:20 Blood - Peripheral Anaerobic Blood Culture - Preliminary No growth in 3 days 08/18/18 10:30 Blood - Peripheral Aerobic Blood Culture - Preliminary No growth in 3 days 08/18/18 10:30 Blood - Peripheral Anaerobic Blood Culture - Preliminary No growth in 3 days 08/18/18 18:43 Abscess - Arm Gram Stain - Final 08/18/18 18:43 Abscess - Arm Wound Culture - Final Staphylococcus aureus 08/18/18 18:43 Abscess - Arm Gram Stain - Final 08/18/18 18:43 Abscess - Arm Wound Culture - Final Staphylococcus aureus 08/18/18 18:43 Abscess - Arm Acid Fast Bacilli Smear - Final No acid fast bacilli seen 08/18/18 18:43 Abscess - Arm Mycobacterial Culture - Pending 08/18/18 18:43 Abscess - Arm Acid Fast Bacilli Smear - Final No acid fast bacilli seen 08/18/18 18:43 Abscess - Arm Mycobacterial Culture - Pending 08/18/18 18:43 Abscess - Arm Fungal Smear - Final No fungal elements seen 08/18/18 18:43 Abscess - Arm Fungal Culture - Pending 08/18/18 18:43 Abscess - Arm Fungal Smear - Final No fungal elements seen 08/18/18 18:43 Abscess - Arm Fungal Culture - Pending Lab - Hematology Results 08/20/18 05:41 WBC 10.2 RBC 4.11 L Hgb 12.3 L Hct 35.5 L MCV 86.4 MCH 30.0 MCHC 34.7 RDW 14.0 Plt Count 280 MPV 7.2 Neut % (Auto) 73.7 H Lymph % (Auto) 14.6 [place] % (Auto) 9.4 H Eos % (Auto) 1.9 Baso % (Auto) 0.4 Neut # (Auto) 7.5 Lymph # (Auto) 1.5 [place] # (Auto) 1.0 H Eos # (Auto) 0.2 Baso # (Auto) 0.0 WBC Differential . Differential Comment Auto diff final Lab - Chemistry Results 08/19/18 08/19/18 08/19/18 12:27 17:34 19:48 POC Glucose 248 H 220 H 233 H 08/20/18 08/20/18 08/20/18 07:48 12:58 17:24 POC Glucose 205 H 205 H 196 H 08/20/18 08/21/18 08/21/18 20:35 08:22 11:21 POC Glucose 255 H 110 132 H Imaging: ITS Impressions Forearm CT 08/18/18 10:01 CONCLUSION: 1. Complex fluid collection likely related to an abscess in the proximal anterior lateral forearm soft tissues within the flexor compartment likely related to abscess. 2. The bony structures are unremarkable. Physical Exam: PHYSICAL EXAMINATION: GENERAL: Patient in no acute distress. HEENT: The head is atraumatic. Extraocular movements are grossly intact. Pupils are reactive to light. No icterus. Oropharynx with moist mucosa without lesions. LUNGS: Clear. HEART: Regular S1 and S2 without murmurs, rubs or gallops. ABDOMEN: Benign. Soft, nontender. EXTREMITIES: No clubbing or cyanosis. The right arm is wrapped in a surgical dressing. EDMUNDO drain has serosanguineous drainage. SKIN: No diffuse rash. NEUROLOGIC: No gross focal finding. PSYCHIATRIC: Calm and cooperative. Assessment and Plan - Plan IMPRESSION: 1. Abscess of the right arm. Staph aureus. MSSA. 2. Diabetes mellitus. RECOMMENDATIONS: 1. Change vancomycin to Ceftriaxone and prepare for outpatient treatment x 2 weeks until Sep 04, 2018. 2. I have written for PIC line and orders for outpatient IV antibiotics. Okay to discharge from ID standpoint when cleared by hand surgeon.
--- NOTE | 2018-08-21 12:42 | P.DCO ---
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 [] May leave port accessed during therapy. [] May leave peripheral site accessed for duration of therapy. [x] If patient has SOB or respiratory distress, check oxygen saturation. If less than 90% or clinical signs of respiratory distress, administer oxygen at 2 L/min. via nasal cannula and notify physician. [x] Anaphylaxis/Reaction orders: * Stop infusion. * Keep IV line open with saline flush. * Notify physician. * Monitor vital signs every 15 minutes until symptoms resolve. * Check Oxygen saturation; Oxygen at 2 L/min. via nasal cannula if less than 90% or clinical signs of respiratory distress. * Administer diphenhydramine (Benadryl) 25 mg IV STAT, (unless patient has received as pre-med). May repeat once, if necessary. * Solu-Cortef 250 mg IVP over 30-60 seconds, use 100 mg vials for each dissolution. * Epinephrine (1mg/1 ml) 0.3 mg subcutaneously or IVP now with any signs of respiratory distress. * Check with physician for new additional pre-med orders if patient is re- challenged or re-treated. [x] May remove PICC line when treatment complete, after confirming with Physician. [x] If the patient is admitted to the hospital, the ED, or transferred via [facility] , complete transfer form including medication reconciliation order sheet. Weekly Labs: BMP - Case Management Consult Case Management Consult-IVF: Yes - Patient Information Allergies infliximab Allergy (Severe, Verified 08/18/18 09:40) HIVES infliximab-dyyb Allergy (Severe, Verified 08/18/18 09:40) HIVES
--- NOTE | 2018-08-21 13:56 | P.PN ---
Physical Exam Vital signs: Vital Signs 08/20/18 16:00 08/20/18 20:00 08/21/18 00:40 Temperature 97.9 F 97.8 F Pulse Rate 84 79 Respiratory Rate 18 18 18 Blood Pressure 133/67 152/68 H Pulse Oximetry 97 95 08/21/18 08:00 08/21/18 12:00 Temperature 97.9 F 97.5 F L Pulse Rate 75 70 Respiratory Rate 17 18 Blood Pressure 135/73 146/89 H Pulse Oximetry 94 L 97 Intake & Output 08/20/18 08/21/18 08/21/18 18:59 06:59 18:59 Intake Total 100 / 100 513.5 / 513.5 500 / 500 Output Total 305 / 305 Balance 100 / 100 208.5 / 208.5 500 / 500 Weight 77.5 kg 77.5 kg Intake: IV 100 / 100 513.5 / 513.5 500 / 500 Zosyn 3.375 GM Premix 50 ML @ 100 / 100 100 mls/hr IV.SIG Q6H MAR[facility]E Rx#: [id number] Vancomycin Inj 1,350 MG In NS 513.5 / 513.5 500 / 500 Inj 500 ML @ 250 mls/hr IV.SIG Q12H MARILEE Rx#:[id number] Output: Urine 300 / 300 Wound Drainage 5 / 5 # 1 Right Anterior ForeArm EDMUNDO 5 / 5 Drain Other: # Voids 3 Date of Last Bowel Movement 08/17/18 08/20/18 08/20/18 # Bowel Movements 1 Results - Labs CBC & Chem 7: 08/20/18 05:41 08/19/18 05:20 Laboratory Results - last 24 hr 08/20/18 08/20/18 08/21/18 17:24 20:35 08:22 POC Glucose 196 H 255 H 110 08/21/18 11:21 POC Glucose 132 H Microbiology 08/18/18 10:20 Blood - Peripheral Aerobic Blood Culture - Preliminary No growth in 3 days 08/18/18 10:20 Blood - Peripheral Anaerobic Blood Culture - Preliminary No growth in 3 days 08/18/18 10:30 Blood - Peripheral Aerobic Blood Culture - Preliminary No growth in 3 days 08/18/18 10:30 Blood - Peripheral Anaerobic Blood Culture - Preliminary No growth in 3 days 08/18/18 18:43 Abscess - Arm Gram Stain - Final 08/18/18 18:43 Abscess - Arm Wound Culture - Final Staphylococcus aureus 08/18/18 18:43 Abscess - Arm Gram Stain - Final 08/18/18 18:43 Abscess - Arm Wound Culture - Final Staphylococcus aureus 08/18/18 18:43 Abscess - Arm Acid Fast Bacilli Smear - Final No acid fast bacilli seen 08/18/18 18:43 Abscess - Arm Acid Fast Bacilli Smear - Final No acid fast bacilli seen Assessment and Plan - Plan Discharge Planning: Per infectious disease and hand surgery
--- NOTE | 2018-08-21 17:39 | P.PNOP ---
Subjective Interval history: NO acute overnight events. Pain is improving. Physical Exam Vital signs: Vital Signs 08/20/18 20:00 08/21/18 00:40 08/21/18 08:00 Temperature 97.8 F 97.9 F Pulse Rate 79 75 Respiratory Rate 18 18 17 Blood Pressure 152/68 H 135/73 Pulse Oximetry 95 94 L 08/21/18 12:00 08/21/18 16:00 Temperature 97.5 F L 97.6 F Pulse Rate 70 74 Respiratory Rate 18 18 Blood Pressure 146/89 H 188/88 H Pulse Oximetry 97 96 Intake & Output 08/20/18 08/21/18 08/21/18 18:59 06:59 18:59 Intake Total 100 / 100 513.5 / 513.5 600 / 600 Output Total 305 / 305 Balance 100 / 100 208.5 / 208.5 600 / 600 Weight 77.5 kg 77.5 kg Intake: IV 100 / 100 513.5 / 513.5 600 / 600 Zosyn 3.375 GM Premix 50 ML @ 100 / 100 100 mls/hr IV.SIG Q6H MARILEE Rx#: [id number] Vancomycin Inj 1,350 MG In NS 513.5 / 513.5 500 / 500 Inj 500 ML @ 250 mls/hr IV.SIG Q12H MAR[facility]E Rx#:[id number] Rocephin Inj 2,000 MG In NS Inj 100 / 100 100 ML @ 200 mls/hr IV.SIG ONCE ONE Rx#:[id number] Output: Urine 300 / 300 Wound Drainage 5 / 5 # 1 Right Anterior ForeArm EDMUNDO 5 / 5 Drain Other: # Voids 3 Date of Last Bowel Movement 08/17/18 08/20/18 08/20/18 # Bowel Movements 1 - Routine Extremities Exam Comments: GEN: A&O x 3 MSK: Focused evaluation of the RUE demonstrates SILT M/R/U. +EPL/FPL/FDS/FDP/ EDC. Dressing in tact. Painless elbow ROM. Results - Labs CBC & Chem 7: 08/20/18 05:41 08/19/18 05:20 Laboratory Results - last 24 hr 08/20/18 08/21/18 08/21/18 20:35 08:22 11:21 POC Glucose 255 H 110 132 H 08/21/18 16:18 POC Glucose 141 H Microbiology 08/18/18 10:20 Blood - Peripheral Aerobic Blood Culture - Preliminary No growth in 3 days 08/18/18 10:20 Blood - Peripheral Anaerobic Blood Culture - Preliminary No growth in 3 days 08/18/18 10:30 Blood - Peripheral Aerobic Blood Culture - Preliminary No growth in 3 days 08/18/18 10:30 Blood - Peripheral Anaerobic Blood Culture - Preliminary No growth in 3 days 08/18/18 18:43 Abscess - Arm Gram Stain - Final 08/18/18 18:43 Abscess - Arm Wound Culture - Final Staphylococcus aureus 08/18/18 18:43 Abscess - Arm Gram Stain - Final 08/18/18 18:43 Abscess - Arm Wound Culture - Final Staphylococcus aureus 08/18/18 18:43 Abscess - Arm Acid Fast Bacilli Smear - Final No acid fast bacilli seen 08/18/18 18:43 Abscess - Arm Acid Fast Bacilli Smear - Final No acid fast bacilli seen Assessment and Plan - Assessment and Plan DIAGNOSIS: Right intramuscular forearm abscess. OPERATION PERFORMED: Right forearm irrigation and debridement of deep abscess, intramuscular. 1. Upper extremity elevation for edema control. WBAT RUE. 2. Follow operative cultures: Staph aureus. IV Vancomycin per ID, consider transition to Ceftriaxone x 2 weeks pending sensitivities. 3. Patient cleared for discharge from a hand surgery standpoint. Drain removed today. Follow up in [address] Bourgeois.
--- NOTE | 2018-08-21 18:30 | P.PN ---
Subjective Interval history: Follow-up arm infection. He is doing okay wants to go home. Cleared for discharge by ID and hand surgery once picc and home health care antibiotic arranged Physical Exam Vital signs: Vital Signs 08/20/18 20:00 08/21/18 00:40 08/21/18 08:00 Temperature 97.8 F 97.9 F Pulse Rate 79 75 Respiratory Rate 18 18 17 Blood Pressure 152/68 H 135/73 Pulse Oximetry 95 94 L 08/21/18 12:00 08/21/18 16:00 Temperature 97.5 F L 97.6 F Pulse Rate 70 74 Respiratory Rate 18 18 Blood Pressure 146/89 H 188/88 H Pulse Oximetry 97 96 Intake & Output 08/20/18 08/21/18 08/21/18 18:59 06:59 18:59 Intake Total 100 / 100 513.5 / 513.5 1999 Output Total 305 / 305 Balance 100 / 100 208.5 / 208.5 1999 Weight 77.5 kg 77.5 kg Intake: IV 100 / 100 513.5 / 513.5 600 / 600 Zosyn 3.375 GM Premix 50 ML @ 100 / 100 100 mls/hr IV.SIG Q6H MARILEE Rx#: [id number] Vancomycin Inj 1,350 MG In NS 513.5 / 513.5 500 / 500 Inj 500 ML @ 250 mls/hr IV.SIG Q12H MARILEE Rx#:[id number] Rocephin Inj 2,000 MG In NS Inj 100 / 100 100 ML @ 200 mls/hr IV.SIG ONCE ONE Rx#:[id number] Oral 1400 / 1400 Output: Urine 300 / 300 Wound Drainage 5 / 5 # 1 Right Anterior ForeArm EDMUNDO 5 / 5 Drain Other: # Voids 3 3 Date of Last Bowel Movement 08/17/18 08/20/18 08/20/18 # Bowel Movements 1 1 Narrative: wdwn 52yo m [place] aaox3 nad heart s1s2 reg lungs clear no wrr abd soft nondt pos bs ext RUE bandaged with drain in place, le no edema Skin is warm no lesions Results - Labs CBC & Chem 7: 08/20/18 05:41 08/19/18 05:20 Laboratory Results - last 24 hr 08/20/18 08/21/18 08/21/18 20:35 08:22 11:21 POC Glucose 255 H 110 132 H 08/21/18 16:18 POC Glucose 141 H Microbiology 08/18/18 10:20 Blood - Peripheral Aerobic Blood Culture - Preliminary No growth in 3 days 08/18/18 10:20 Blood - Peripheral Anaerobic Blood Culture - Preliminary No growth in 3 days 08/18/18 10:30 Blood - Peripheral Aerobic Blood Culture - Preliminary No growth in 3 days 08/18/18 10:30 Blood - Peripheral Anaerobic Blood Culture - Preliminary No growth in 3 days 08/18/18 18:43 Abscess - Arm Gram Stain - Final 08/18/18 18:43 Abscess - Arm Wound Culture - Final Staphylococcus aureus 08/18/18 18:43 Abscess - Arm Gram Stain - Final 08/18/18 18:43 Abscess - Arm Wound Culture - Final Staphylococcus aureus 08/18/18 18:43 Abscess - Arm Acid Fast Bacilli Smear - Final No acid fast bacilli seen 08/18/18 18:43 Abscess - Arm Acid Fast Bacilli Smear - Final No acid fast bacilli seen - Imaging ITS Impressions Forearm CT 08/18/18 10:01 CONCLUSION: 1. Complex fluid collection likely related to an abscess in the proximal anterior lateral forearm soft tissues within the flexor compartment likely related to abscess. 2. The bony structures are unremarkable. - Procedures right forearm abscess I and D Assessment and Plan - Plan EARLY SEPSIS due to arm cellulitis -resolved CELLULITIS AND ABSCESS RIGHT FOREARM post urgent intraoperative R forearm irrigation, debridement of deep IM abscess, cont wound care abx switched to Rocephin per sensitivity culture with MSSA, pain control, elevation and ID consulted. Ct Lortab counseled regarding narcotics DM IDDM - uncontrolled - diet, iss, levemir, accuchecks. Improving continue hypoglycemia protocol CROHNS dz - stable TOBACCO USE / NICOTINE ADDICTION - nicoderm, cessation counseled DVT proph with SCD Discharge Planning: Discharge today
--- NOTE | 2018-08-21 18:31 | P.DS ---
Date of admission: 08/18/18 12:44 Primary care physician: Iris Nicole DO Anticipated date of discharge: 08/22/18 Brief History from admission: 52-year-old white male being admitted for sepsis 2/2 right forearm infx. Patient was in his usual state of health about 1 week ago when he began experiencing right forearm pain. Says that his pain would worsen with forearm movement including supination flexion, wrist flexion wrist extension, and closing his right fist. Says he saw a redness emerge in his proximal anterior forearm about 2 days ago, went to an urgent care yesterday received some sort of IV antibiotic shot and was prescribed antibiotics. This morning he woke up in worsening excruciating pain and noted that the redness had expanded towards his wrist and also on the other and almost midway up his upper arm. He reports having subjective fevers along with nausea and vomiting. Denies any diarrhea. Denies any inoculating injury or any trauma to the arm. Patient reports having uncontrolled sugars, thinks his A1c is around 8-9, says his blood sugars range from the 150s up to the 300s. Says he is not very compliant with his insulin regimen. Denies noticing any whiteheads on his arm recently. In the emergency department he had a CT scan done which showed an abscess-like finding in the forearm flexor compartment. His white count was around 13,000. Patient was given a dose of vancomycin, and surgery has been consulted for possible debridement today. Patient does have history of severe cellulitis of the right elbow a few years ago that was successfully treated with antibiotics. DS: Medications - Discharge Medications Prescriptions: amlodipine [Norvasc] 2.5 mg PO DAILY #30 tab hydrocodone-acetaminophen [[place]] 1 tab PO Q4H PRN #30 tab PRN Reason: Acute Pain Exception DS: Summary Hospital Course: EARLY SEPSIS due to arm cellulitis -resolved CELLULITIS AND ABSCESS RIGHT FOREARM post urgent intraoperative R forearm irrigation, debridement of deep IM abscess, cont wound care abx switched to Rocephin per sensitivity culture with MSSA, pain control, elevation and ID consulted. Ct Lortab counseled regarding narcotics DM IDDM - uncontrolled - diet, iss, levemir, accuchecks. Improving continue hypoglycemia protocol CROHNS dz - stable TOBACCO USE / NICOTINE ADDICTION - nicoderm, cessation counseled New onset HTN. Start Norvasc. DVT proph with SCD - Time Spent with Patient Total time spent providing and/or coordinating discharge services: Greater than 30 minutes - Quality: VTE Deep Vein Thrombosis/Pulmonary Embolism Present on Admission: No Exam Vital signs: Vital Signs 08/20/18 20:00 08/21/18 00:40 08/21/18 08:00 Temperature 97.8 F 97.9 F Pulse Rate 79 75 Respiratory Rate 18 18 17 Blood Pressure 152/68 H 135/73 Pulse Oximetry 95 94 L 08/21/18 12:00 08/21/18 16:00 Temperature 97.5 F L 97.6 F Pulse Rate 70 74 Respiratory Rate 18 18 Blood Pressure 146/89 H 188/88 H Pulse Oximetry 97 96 Intake & Output 08/20/18 08/21/18 08/21/18 18:59 06:59 18:59 Intake Total 100 / 100 513.5 / 513.5 1999 Output Total 305 / 305 Balance 100 / 100 208.5 / 208.5 1999 Weight 77.5 kg 77.5 kg Intake: IV 100 / 100 513.5 / 513.5 600 / 600 Zosyn 3.375 GM Premix 50 ML @ 100 / 100 100 mls/hr IV.SIG Q6H MARILEE Rx#: [id number] Vancomycin Inj 1,350 MG In NS 513.5 / 513.5 500 / 500 Inj 500 ML @ 250 mls/hr IV.SIG Q12H MARILEE Rx#:[id number] Rocephin Inj 2,000 MG In NS Inj 100 / 100 100 ML @ 200 mls/hr IV.SIG ONCE ONE Rx#:[id number] Oral 1400 / 1400 Output: Urine 300 / 300 Wound Drainage 5 / 5 # 1 Right Anterior ForeArm EDMUNDO 5 / 5 Drain Other: # Voids 3 3 Date of Last Bowel Movement 08/17/18 08/20/18 08/20/18 # Bowel Movements 1 1 Narrative: wdwn 52yo m [place] aaox3 nad heart s1s2 reg lungs clear no wrr abd soft nondt pos bs ext RUE bandaged, le no edema Skin is warm no lesions Results Procedures completed during hospitalization: right forearm abscess I and D Labs on day of discharge: Labs from last 24 hours 08/21/18 08/21/18 08/21/18 16:18 11:21 08:22 POC Glucose 141 H 132 H 110 08/20/18 20:35 POC Glucose 255 H Preliminary micro results at discharge 08/18/18 10:20 Aerobic Blood Culture - Preliminary Blood - Peripheral No growth in 3 days Anaerobic Blood Culture - Preliminary No growth in 3 days 08/18/18 10:30 Aerobic Blood Culture - Preliminary Blood - Peripheral No growth in 3 days Anaerobic Blood Culture - Preliminary No growth in 3 days - Impressions ITS Impressions Forearm CT 08/18/18 10:01 CONCLUSION: 1. Complex fluid collection likely related to an abscess in the proximal anterior lateral forearm soft tissues within the flexor compartment likely related to abscess. 2. The bony structures are unremarkable. Discharge Plan - Discharge Disposition Patient Disposition: /Home Health Service - Discharge Condition Condition: Stable - Discharge Order Discharge Orders: Discharge Order (Routine); Ordered 08/21/18 Ordered By: Sánchez Shah - Discharge Details Discharge Comment: dc when [facility] IV abx and PICC arranged - Physicians Team Primary Care Provider: Iris Nicole Attending Provider: Sánchez Shah Other Providers: Daniel Bourgeois MD ; Donn Mchugh MD
[2018-08-22 07:00] LABS: Glomerular Filtration Rate Greater Than 89 mL/min (>89)
[2018-08-22] MEDS: Insulin NovoLOG Aspart Correctional Sugar Inj SQ SCH ×2 (08:17→11:48)
--- NOTE | 2018-08-22 08:42 | P.DCO ---
- Diagnosis (1) Abscess of right forearm Status: Acute - Home Health Nursing Order: Medication education-adverse effect, Wound care and dressing changes, Nursing assessment with vital signs - Case Management Consult Case Management Consult-Home Health: Yes - Certification I have seen patient Roderick Maddox on 08/22/18. My clinical findings support the need for the requested home health care services because: Deconditioned with increased weakness I certify that my clinical findings support that this patient is homebound because: Unsafe to leave home unassisted, Need for psychosocial assistance
[2018-08-22] MEDS ORDERED: amLODIPine 5 MG Tablet PO SCH (09:00)
[2018-08-22] MEDS: Insulin Detemir Inj 1,000 UNIT/10 ML Vial SQ SCH (09:41)
[2018-08-22] MEDS ORDERED: Pharmacy Ordered Lab Info OTHER ONE (09:45)
== END 2018-08-22 12:40 | disposition home health service (06) ==
LOC: PHED 09:31 → PHEDA 12:44 → N07 15:30
PROVIDERS: ADMIT Internal Medicine; ATTEND Internal Medicine